=== PATIENT | male | born 1935 | race Caucasian/White ===

== ENCOUNTER → 2017-01-12 | Outpatient (CLI) | payer MEDICARE, OTHER ==
[~2017-01-12] MED LIST: AMLO2.5T PO; ASPI81TA2 PO; ATEN50TA PO; CALC-191 PO; CITA20TA9 PO; FINA5TAB42 PO; FLUO15CR TOP; HYDR-3989 PO; INSU100I21 SQ; LISI-621 PO; METO10TA3 PO; ONDA-55 PO; POLY119P3 PO; SITA50TA PO
[2017-01-12 12:49] LABS: ALBUMIN 4.1 G/DL (3.5-5.0); ALBUMIN/GLOBULIN RATIO 1.2 RATIO (1.1-2.2); ALKALINE PHOSPHATASE 84 U/L (38-126); ALT (SGPT) 33 U/L (21-72); ANION GAP 15 MEQ/L (5-15); AST (SGOT) 17 U/L (17-59); BUN/CREATININE RATIO 28 RATIO (6-26); CALCIUM 8.7 MG/DL (8.4-10.2); CHLORIDE 99 MEQ/L (98-107); CO2 - CARBON DIOXIDE 24 MEQ/L (22-30); CREATININE 1.2 MG/DL (0.8-1.5); GLOMERULAR FILTRATION RATE 58; GLUCOSE 362 MG/DL (75-110); POTASSIUM 4.5 MEQ/L (3.6-5); SODIUM 138 MEQ/L (134-144); TOTAL PROTEIN 7.6 G/DL (6.3-8.2)
--- NOTE | 2017-01-12 15:13 | DI ---
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 Coronal and sagittal two-dimensional reformats. Automated Exposure Control and Iterative Reconstruction dose reducing techniques were utilized. 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 Lungs are stable in appearance. No new consolidation, pleural effusion or pneumothorax. No new pulmonary nodules or masses. The central airways are patent. Postoperative changes in the right breast with chronic fluid collections in the right chest wall and right axilla. These are stable in size. Right axillary surgical clips. No axillary or mediastinal adenopathy. Heart and great vessels are stable. No pericardial effusion. Coronary artery calcifications. Abdomen/pelvis: The unenhanced contours of the liver, spleen, partially fatty replaced pancreas and adrenal glands are stable. Multiple gallstones appears similar. The kidneys are stable. No abdominal or pelvic adenopathy. Chronic bladder wall thickening with a suprapubic tube in place. Prostate calcifications. No free fluid. No evidence of a bowel obstruction. Bone windows show no lytic or blastic osseous lesions. Impression: Stable exam without evidence of metastatic disease in the chest, abdomen or pelvis. .
== END ==
LOC: IMA 12:19
PROVIDERS: ATTEND Internal Medicine Hematology & Oncology
DX: C50.121 Malignant neoplasm of central portion of right male breast (principal)
CPT/HCPCS: 36415; 80053